=== PATIENT | female | born 1965 | race Hispanic/Latino ===

== ENCOUNTER 2020-11-14 11:30 | Outpatient (CLI) | payer OTHER ==
--- NOTE | 2020-11-14 14:15 | XRay Report ---
LEFT KNEE 3 VIEW(S) INDICATION / CLINICAL INFORMATION: LEFT KNEE PAIN COMPARISON: None available. FINDINGS: BONES / JOINT(S): No acute fracture or subluxation. Mild degenerative changes with minimal marginal o steophytosis at the medial compartment. There is mild medial compartment joint space narrowing SOFT TISSUES: No significant abnormality. ADDITIONAL FINDINGS: None. Signer Name: Jean Paul Sanchez MD Signed: 11/14/2020 2:11 PM Workstation Name: [id number]
--- NOTE | 2020-11-14 14:19 | XRay Report ---
THORACIC SPINE 3 VIEWS INDICATION / CLINICAL INFORMATION: BACK PAIN. COMPARISON: None available. FINDINGS: VERTEBRAE: No acute fracture. Mild levoconvex thoracolumbar scoliosis with Adams angle of approximatel y 28 degrees. DISC SPACES / FACET JOINTS:No significant abnormality. PARASPINAL SOFT TISSUES:No significant abnormality. ADDITIONAL FINDINGS: None. LUMBAR SPINE 3 VIEWS INDICATION / CLINICAL INFORMATION: BACK PAIN. COMPARISON: None available. FINDINGS: VERTEBRAE: No acute fracture. Grade 1 anterolisthesis of L5 on S1. DISC SPACES / FACET JOINTS:Mild lower lumbar facet degenerative arthrosis. Intervertebral disc height s are satisfactorily maintained. PARASPINAL SOFT TISSUES:No significant abnormality. ADDITIONAL FINDINGS: None. Signer Name: Jean Paul Sanchez MD Signed: 11/14/2020 2:15 PM Workstation Name: [id number]
== END 2020-11-14 11:31 | disposition home or self-care (01) ==
LOC: XRAY 11:30
PROVIDERS: ATTEND Internal Medicine
DX: M17.12 Unilateral primary osteoarthritis, left knee (principal); M41.85 Other forms of scoliosis, thoracolumbar region; M25.762 Osteophyte, left knee
CPT/HCPCS: 72072; 72100